=== PATIENT | female | born 1985 | race Caucasian/White ===

== ENCOUNTER 2019-04-16 12:49 | Emergency (ER) | payer MEDICAID ==
[~2019-04-16] VITALS: Ht 162.6 cm; Wt 59.9 kg
[2019-04-16 13:19] VITALS: BP_SYST 151
--- NOTE | 2019-04-16 16:18 | NUR ---
MSE completed by myself.
[2019-04-16] MEDS ORDERED: SODIUM BICARBONATE 8.4% VIAL 50 MEQ/50 ML VIAL INJ ONE (16:45)
[2019-04-16] MEDS ORDERED: LIDOCAINE 2%, 20 ML MDV INJ ONE (16:45)
[2019-04-16] MEDS ORDERED: IBUPROFEN 600 MG TABLET PO ONE (16:45)
[2019-04-16] MEDS ORDERED: BACITRACIN 1 GM OINT TP ONE (16:45)
--- NOTE | 2019-04-16 17:00 | NUR ---
Patient to ER bed 07 to gown for evaluation. Side rails up.
--- NOTE | 2019-04-16 17:01 | NUR ---
Pt brought by self, A&Ox4, pt presents to ER with LAC on R hand after glass broke on her hand, bleeding controllled , skin pink and warm, cap refill <3.
[2019-04-16 18:00] VITALS: BP_SYST 148
--- NOTE | 2019-04-16 18:00 | NUR ---
Patient given written and verbal discharge instructions and verbalizes understanding. ER MD discussed with patient the results and treatment provided. Patient in stable condition. ID arm band removed. Rx of Bacitracin given. Patient educated on pain management and to follow up with PMD. Pain Scale 3/10 . Opportunity for questions provided and answered. Medication side effect fact sheet provided.
== END 2019-04-16 18:00 | disposition home or self-care (01) ==
LOC: SED 12:49
DX: S61.411A Laceration without foreign body of right hand, initial encounter (principal); I10 Essential (primary) hypertension; W25.XXXA Contact with sharp glass, initial encounter; Y93.89 Activity, other specified; Y92.89 Other specified places as the place of occurrence of the external cause; Y99.8 Other external cause status
CPT/HCPCS: 12001; 99283; J2001